=== PATIENT | female | born 1935 | race Caucasian/White ===

== ENCOUNTER → 2018-02-13 | Day surgery (SDC) | payer MEDICARE, OTHER ==
[~2018-02-13] MED LIST: Brimonidine 0.2% Ophth Soln 5 ML Bottle EYELF SCH; Phenylephrine 2.5% Ophth Soln 2 ML Bot EYELF SCH; Tropicamide 1% Ophth Soln 15 ML Bottle EYELF SCH
== END ==
LOC: JD.SDS 07:43
PROVIDERS: ATTEND Ophthalmology
DX: H26.492 Other secondary cataract, left eye (principal); Z88.0 Allergy status to penicillin